=== PATIENT | female | born 1970 | race Hispanic/Latino ===

== ENCOUNTER → 2018-07-20 | Outpatient (CLI) | payer OTHER ==
--- NOTE | 2018-07-20 11:47 | Diagnostic Imaging Report ---
Exam: Left heel 2 views History: Pain Comparison: None. Findings: No fracture or malalignment. Joint spaces preserved. Dorsal and plantar calcaneal enthesophytes. Impression: No acute osseous abnormality Dorsal and plantar calcaneal enthesophytes. Signed by: Dr. Gerardo Hardy M.D. on 07/20/2018 11:44 AM
== END ==
LOC: RAD 10:50
PROVIDERS: ATTEND Family Medicine
DX: M79.672 Pain in left foot (principal)